=== PATIENT | male | born 1950 | race Caucasian/White ===

== ENCOUNTER 2020-09-10 10:41 | Outpatient (CLI) | payer MEDICARE ==
[2020-09-10 21:22] LABS: SARS-CoV-2 PCR by NAA Not Detected (NotDetected)
== END 2020-09-10 10:42 | disposition home or self-care (01) ==
LOC: CSHLAB 10:41
PROVIDERS: ATTEND Internal Medicine Gastroenterology
DX: Z20.822 Contact with and (suspected) exposure to COVID-19 (principal); K21.9 Gastro-esophageal reflux disease without esophagitis; Z12.11 Encounter for screening for malignant neoplasm of colon
CPT/HCPCS: 87635; U0003; U0005

== ENCOUNTER 2020-09-15 09:12 | Day surgery (SDC) | payer MEDICARE ==
[2020-09-11 16:08] VITALS: BMI 29.8
[2020-09-15] MEDS ORDERED: Lidocaine 1% MPF 2 ML VIAL ONE (10:11)
[2020-09-15] MEDS ORDERED: PROPOFOL 40 ML ONE (10:58)
[2020-09-15] MEDS ORDERED: Lidocaine 1% PF 5 ML VIAL ONE (11:13)
[2020-09-15] MEDS ORDERED: PROPOFOL 20 ML ONE (11:45)
== END 2020-09-15 12:45 | disposition home or self-care (01) ==
LOC: CSHSDC 09:12
PROVIDERS: ATTEND Internal Medicine Gastroenterology
PROC: 0DJD8ZZ Inspection of Lower Intestinal Tract, Via Natural or Artificial Opening Endoscopic (ICD-10-PCS; principal; 2020-09-15)
DX: Z12.11 Encounter for screening for malignant neoplasm of colon (principal); K25.9 Gastric ulcer, unspecified as acute or chronic, without hemorrhage or perforation; K21.9 Gastro-esophageal reflux disease without esophagitis; K57.30 Diverticulosis of large intestine without perforation or abscess without bleeding; K64.9 Unspecified hemorrhoids
CPT/HCPCS: 43239; 88305; 88312; G0121; J2704

== ENCOUNTER 2021-05-06 08:41 | Outpatient (CLI) | payer MEDICARE | END 2021-05-06 08:42 | disposition home or self-care (01) | LOC: CSHCT 08:41 | PROVIDERS: ATTEND Family Medicine | DX: Z12.2 Encounter for screening for malignant neoplasm of respiratory organs (principal); Z87.891 Personal history of nicotine dependence | CPT/HCPCS: 71271 ==

== ENCOUNTER 2021-05-25 08:22 | Outpatient (CLI) | payer MEDICARE | END 2021-05-25 08:23 | disposition home or self-care (01) | LOC: CSHCT 08:22 | PROVIDERS: ATTEND Internal Medicine Hematology & Oncology | DX: C10.1 Malignant neoplasm of anterior surface of epiglottis (principal); R22.1 Localized swelling, mass and lump, neck | CPT/HCPCS: 70491; 82565 ==

== ENCOUNTER 2023-02-01 07:42 | Outpatient (CLI) | payer MEDICARE ==
[2023-02-01] MEDS ORDERED: Magnevist 469MG/ML 20 ML VIAL ONE (10:14)
== END 2023-02-01 07:43 | disposition home or self-care (01) ==
LOC: CSHMRI 07:42
PROVIDERS: ATTEND Urology
DX: C61 Malignant neoplasm of prostate (principal)
CPT/HCPCS: 72197; 82565

== ENCOUNTER 2023-03-17 09:49 | Outpatient (CLI) | payer MEDICARE | END 2023-03-17 09:50 | disposition home or self-care (01) | LOC: CSHRAD 09:49 | PROVIDERS: ATTEND Urology | DX: N40.1 Benign prostatic hyperplasia with lower urinary tract symptoms (principal) | CPT/HCPCS: 51600; 74430 ==